=== PATIENT | female | born 1960 | race Caucasian/White ===

== ENCOUNTER 2016-12-01 14:45 | Emergency (ER) | payer OTHER, MEDICARE, BC ==
[~2016-12-01] VITALS: Ht 172.7 cm; Wt 113.4 kg
[~2016-12-01 14:45] MED LIST: AMBIEN10 MG PO; ASPIRIN325 MG PO; CELEXA40 MG PO; FOLIC ACID1 MG PO; INDERAL10 MG PO; LASIX20 MG PO; MYCOPHENOLIC A180 MG PO; PREDNISONE5 MG PO; PRILOSEC20 MG PO; PROGRAF1 MG PO; TRAZODONE HCL50 MG PO; ULTRAM50 MG PO; VITAMIN D31000 UNI1 PO
== END 2016-12-01 17:22 | disposition short-term general hospital (02) ==
LOC: ER 14:45
DX: M79.661 Pain in right lower leg (principal); F32.9 Major depressive disorder, single episode, unspecified; G62.9 Polyneuropathy, unspecified; Z90.49 Acquired absence of other specified parts of digestive tract; Z90.89 Acquired absence of other organs; Z79.899 Other long term (current) drug therapy; Z88.5 Allergy status to narcotic agent; W18.09XA Striking against other object with subsequent fall, initial encounter